=== PATIENT | female | born 1990 | race Caucasian/White ===

== ENCOUNTER 2017-07-23 16:53 | Emergency (ER) | payer OTHER ==
[2017-07-23 16:57] VITALS: BP 132/95; PULSE 89; TEMP 98.9; BMI 29.0
[2017-07-23] MEDS ORDERED: DIPHTH,PERTUSS(ACELL),TET 0.5 ML DISP.SYRIN IM ONE (16:59)
--- NOTE | 2017-07-23 17:24 | PDOC ---
History of Present Illness - General History Source: Patient Exam Limitations: No Limitations - History of Present Illness Initial Comments: 07/23/17 17:29 27 year old female, with PMH of anxiety, who presents to the emergency department today complaining of intermittent left sided chest pain and cough that began 9 days ago. She describes the pain as nonradiating, throbbing, and 6/ 10 in severity. Each episode lasts for 10-15 seconds long. She notes that she has had a cough for 2 weeks which that was initially nonproductive, however, 3 days ago she began coughing up green sputum. She reports that she feels more tired than usual. Denies fever, chills, nausea, vomiting, abdominal pain, diarrhea. Denies lightheadedness, headache. Denies SOB. Allergies: NKA <Kisha Hugo - Last Filed: 07/23/17 17:36> <Ben Schmitt - Last Filed: 07/23/17 17:45> - General Chief Complaint: Cold Symptoms Stated Complaint: COUGH Time Seen by Provider: 07/23/17 16:58 Past History <Kisha Hugo - Last Filed: 07/23/17 17:36> - Past Medical History COPD: No Other medical history: DENIES - Suicide/Smoking/Psychosocial Hx Smoking History: Never smoked Hx Alcohol Use: Yes Drug/Substance Use Hx: No Substance Use Type: Alcohol <Ben Schmitt - Last Filed: 07/23/17 17:45> - Past Medical History Allergies/Adverse Reactions: Allergies Allergy/AdvReac Type Severity Reaction Status Date / Time No Known Allergies Allergy Verified 07/23/17 16:54 Home Medications: Ambulatory Orders Ibuprofen 400 mg PO TID PRN #20 tablet 07/23/17 Norethindrone-E.estradiol-Iron [Rika Fe 1-20 Tablet] 1 each PO DAILY 07/23/17 Promethazine/Phenyleph/Codeine [Phenergan VC+Codeine Syrup] 5 - 10 ml PO TID PRN #100 ml MDD 6 07/23/17 Review of Systems - Review of Systems Able to Perform ROS?: Yes Comments:: 07/23/17 17:29 CONSTITUTIONAL: Absent: fever, chills, diaphoresis, generalized weakness, malaise, loss of appetite HEENT: Absent: rhinorrhea, nasal congestion, throat pain, throat swelling, difficulty swallowing, mouth swelling, ear pain, eye pain, visual Changes CARDIOVASCULAR: Present:chest pain Absent: syncope, palpitations, irregular heart rate, lightheadedness, peripheral edema RESPIRATORY: Present: cough Absent: shortness of breath, dyspnea with exertion, orthopnea, wheezing, stridor, hemoptysis GASTROINTESTINAL: Absent: abdominal pain, abdominal distension, nausea, vomiting, diarrhea, constipation, melena, hematochezia MUSCULOSKELETAL: Absent: myalgia, arthralgia, joint swelling SKIN: Absent: rash, itching, pallor NEUROLOGIC: Absent: headache, focal weakness or paresthesias, dizziness, unsteady gait, seizure, mental status changes, bladder or bowel incontinence PSYCHIATRIC: Absent: anxiety, depression, suicidal or homicidal ideation, hallucinations. <Kisha Hugo - Last Filed: 07/23/17 17:36> *Physical Exam - Vital Signs Last Vital Signs Temp Pulse Resp BP Pulse Ox 98.9 F 89 16 132/95 100 07/23/17 16:53 07/23/17 16:53 07/23/17 16:53 07/23/17 16:53 07/23/17 16:53 - Physical Exam Comments: 07/23/17 17:36 GENERAL: Well developed, well nourished. Awake and alert. In no acute distress. HEENT: Normocephalic, atraumatic. PERRLA, EOMI. No conjunctival pallor. Sclera are non- icteric. Moist mucous membranes. Oropharynx is clear. NECK: Supple. Full ROM. No JVD. Carotid pulses 2+ and symmetric, without bruits. No thyromegaly. No lymphadenopathy. CARDIOVASCULAR: Regular rate and rhythm. No murmurs, rubs, or gallops. Distal pulses are 2+ and symmetric. PULMONARY: No evidence of respiratory distress. Lungs clear to auscultation bilaterally. No wheezing, rales or rhonchi. ABDOMINAL: Soft. Non-tender. Non-distended. No rebound or guarding. No organomegaly. Normoactive bowel sounds. MUSCULOSKELETAL +Tenderness to deep palpation over the left anterior chest wall. No deformity and crepitus. Normal range of motion at all joints. No bony deformities or tenderness. No CVA tenderness. EXTREMITIES: No cyanosis. No clubbing. No edema. No calf tenderness. SKIN: Warm and dry. Normal capillary refill. No rashes. No jaundice. NEUROLOGICAL: Alert, awake, appropriate. Cranial nerves 2-12 intact. PSYCHIATRIC: Cooperative. Good eye contact. Appropriate mood and affect. <Kisha Hugo - Last Filed: 07/23/17 17:36> - Vital Signs Last Vital Signs Temp Pulse Resp BP Pulse Ox 98.9 F 89 16 132/95 100 07/23/17 16:53 07/23/17 16:53 07/23/17 16:53 07/23/17 16:53 07/23/17 16:53 <Ben Schmitt - Last Filed: 07/23/17 17:45> Medical Decision Making - Medical Decision Making 07/23/17 17:35 Probable acute costochondritis. No evidence of cardiac or respiratory disease. May be precipitated by recent URI. Symptomatic treatment and follow-up if symptoms worsen. Patient in no pain or other distress upon discharge to follow up as needed. <Ben Schmitt - Last Filed: 07/23/17 17:45> *DC/Admit/Observation/Transfer - Attestations Scribe Attestion: 07/23/17 17:30 Documentation prepared by DANIELLA Munguia, acting as medical records library professor for Ben Schmitt MD. <Kisha Hugo - Last Filed: 07/23/17 17:36> - Discharge Dispostion Admit: No <Ben Schmitt - Last Filed: 07/23/17 17:45> Diagnosis at time of Disposition: Viral URI with cough, Costochondritis - Discharge Dispostion Disposition: HOME Condition at time of disposition: Stable - Prescriptions Prescriptions: Ibuprofen 400 mg PO TID PRN #20 tablet PRN Reason: Pain Promethazine/Phenyleph/Codeine [Phenergan VC+Codeine Syrup] 5 - 10 ml PO TID PRN #100 ml MDD 6 PRN Reason: cough, congestion - Referrals Referrals: Uriah Colorado MD [Staff Physician] - - Patient Instructions Printed Discharge Instructions: DI for Viral Upper Respiratory Infection -- Adult, DI for Costochondritis - Post Discharge Activity Forms/Work/School Notes: Back to Work
== END 2017-07-23 18:09 | disposition home or self-care (01) ==
LOC: FER 16:53
DX: M94.0 Chondrocostal junction syndrome [Tietze] (principal); J06.9 Acute upper respiratory infection, unspecified; F41.9 Anxiety disorder, unspecified
CPT/HCPCS: 99281-25

== ENCOUNTER 2017-10-01 11:37 | Emergency (ER) | payer OTHER ==
--- NOTE | 2017-10-01 11:51 | PDOC ---
History of Present Illness - General Chief Complaint: Headache Stated Complaint: HEADACHE ON AND OFF 2 MONTHS LOWER ABDOMEN CRAMPI Time Seen by Provider: 10/01/17 11:48 History Source: Patient - History of Present Illness Timing/Duration: unsure, intermittent Severity: moderate Modifying Factors: improves with: cold therapy, medication Past History - Travel Traveled outside of the country in the last 30 days: No Close contact w/someone who was outside of country & ill: No - Past Medical History Allergies/Adverse Reactions: Allergies Allergy/AdvReac Type Severity Reaction Status Date / Time No Known Allergies Allergy Verified 10/01/17 11:39 Home Medications: Ambulatory Orders Butalb/Acetaminophen/Caffeine [Fioricet 50-300-40 mg Capsule] 1 tab PO PRN 10/01 Methocarbamol [Robaxin -] 500 mg PO TID #21 tablet 10/01/17 Norethindrone-E.estradiol-Iron [Rika Fe 1.5-30 Tablet] 1 tab PO DAILY 10/01/17 Ondansetron [Ondansetron Odt] 8 mg PO BID #10 tab.rapdis 10/01/17 COPD: No Other medical history: Migraine headaches - Suicide/Smoking/Psychosocial Hx Smoking History: Never smoked Hx Alcohol Use: Yes Drug/Substance Use Hx: No Substance Use Type: Alcohol Review of Systems - Review of Systems Able to Perform ROS?: Yes Is the patient limited Indonesian proficient: Yes Constitutional: Yes: Symptoms Reported, Malaise HEENTM: No: Symptoms Reported, See HPI, Eye Pain, Blurred Vision, Tearing, Recent change in vision, Double Vision, Cataracts, Ear Pain, Ocular Prothesis, Ear Discharge, Nose Pain, Nose Congestion, Tinnitus, Nose Bleeding, Hearing Loss , Throat Pain, Throat Swelling, Mouth Pain, Dental Problems, Difficulty Swallowing, Mouth Swelling, Other Respiratory: No: Symptoms reported, See HPI, Cough, Orthopnea, Shortness of Breath, SOB with Exertion, SOB at Rest, Stridor, Wheezing, Productive cough, Hemoptysis, Other ABD/GI: Yes: See HPI Neurological: Yes: Symptoms reported, Headache All Other Systems: Reviewed and Negative *Physical Exam - Physical Exam General Appearance: Yes: Nourished, Appropriately Dressed, Obese. No: Apparent Distress HEENT: positive: JAROD, Normal ENT Inspection Neck: positive: Trachea midline, Supple Respiratory/Chest: positive: Lungs Clear, Normal Breath Sounds Cardiovascular: positive: Regular Rate Gastrointestinal/Abdominal: positive: Other (Mild suprapubic abdominal pain) Integumentary: positive: Normal Color Neurologic: positive: floorleader II-XII NML intact, Fully Oriented, Alert, Normal Mood/ Affect, Normal Response Medical Decision Making - Medical Decision Making Patient being observed for 2 hours, CT head tested NAD. Give copy of report, advised to follow up with neurologist as scheduled 10/02/17 12:11 *DC/Admit/Observation/Transfer Diagnosis at time of Disposition: Tension headache - Discharge Dispostion Disposition: HOME Condition at time of disposition: Stable Admit: No - Prescriptions Prescriptions: Methocarbamol [Robaxin -] 500 mg PO TID #21 tablet Ondansetron [Ondansetron Odt] 8 mg PO BID #10 tab.rapdis - Referrals - Patient Instructions Printed Discharge Instructions: DI for Migraine Additional Instructions: Follow up with your neurologist - Post Discharge Activity
[2017-10-01 11:57] VITALS: TEMP 98; BMI 29.7
[2017-10-01 13:31] VITALS: BP 126/84; PULSE 101
== END 2017-10-01 13:54 | disposition home or self-care (01) ==
LOC: FER 11:37
DX: G44.209 Tension-type headache, unspecified, not intractable (principal)
CPT/HCPCS: 70450-TC; 84703; 99282-25

== ENCOUNTER 2019-09-22 09:20 | Emergency (ER) | payer OTHER ==
[2019-09-22 09:45] VITALS: TEMP 97.9; BMI 29.8
[2019-09-22] MEDS ORDERED: ONDANSETRON 4 MG/2 ML VIAL IVPB ONE (09:46)
[2019-09-22] MEDS ORDERED: SODIUM CHLORIDE 1,000 ML IV STA (09:46)
--- NOTE | 2019-09-22 09:47 | PDOC ---
History of Present Illness - General Chief Complaint: Nausea Stated Complaint: NAUSEA AND DIARRHEA FOR 5 MONTHS Time Seen by Provider: 09/22/19 09:45 - History of Present Illness Initial Comments: 09/22/19 11:59 Chief complaint: Intermittent diarrhea HPI: Intermittent watery diarrhea since the of her first child 5 months ago. On some days she has 3-4 loose stools, and other days no diarrhea. She recently returned from a vacation in the [place], during which time her diarrhea seemed to increase, but now is back at usual frequency. No diarrhea today Review of systems: No fever/chills, URI symptoms, sore throat, cough, chest pain , shortness of breath, abdominal pain, nausea, vomiting, urinary tract symptoms , vaginal bleeding or discharge. Remainder of systems reviewed and negative Past medical history: Normal childbirth 5 months ago, intermittent watery diarrhea and occasional GERD symptoms. No surgery. Otherwise negative Social/family history reviewed and noncontributory Physical exam: Alert and oriented well-developed well-nourished no acute distress cheerful and cooperative. No abdominal pain or diarrhea at present Afebrile, vital signs normal No pallor or icterus. PERRLA, fundi benign, ENT clear Neck supple without bruit mass or nodes Chest clear CV regular without murmur rub or gallop Abdomen nondistended, bowel sounds normal. Soft without mass tenderness organomegaly. No CVAT Skin clear, no rash, adequate turgor and wet mucous membranes Extremities no CCE Neurological intact Impression: No acute illness, but chronic abdominal symptoms suggestive of IBS with diarrhea. Plan: Dietary management with regular meals, avoiding fatty foods. Referral to [facility] for further evaluation and treatment. Fully ambulatory in no pain or other distress at discharge to follow-up as recommended Past History - Past Medical History Allergies/Adverse Reactions: Allergies Allergy/AdvReac Type Severity Reaction Status Date / Time No Known Allergies Allergy Verified 10/01/17 11:39 Home Medications: Ambulatory Orders Metoprolol Succinate [Toprol Xl] 25 mg PO DAILY 09/22/19 COPD: No HTN: Yes Kidney Stones: Yes - Psycho Social/Smoking Cessation Hx Smoking History: Never smoked Information on smoking cessation initiated: No Hx Alcohol Use: Yes (SOCIAL) Drug/Substance Use Hx: No Substance Use Type: Alcohol *Physical Exam - Vital Signs Last Vital Signs Temp Pulse Resp BP Pulse Ox 97.9 F 96 H 16 132/92 100 09/22/19 09:37 09/22/19 09:37 09/22/19 09:37 09/22/19 09:37 09/22/19 09:37 Discharge - Discharge Information Problems reviewed: Yes Clinical Impression/Diagnosis: Irritable bowel Qualifiers: Irritable bowel syndrome type: with diarrhea Qualified Code(s): K58.0 - Irritable bowel syndrome with diarrhea Condition: Stable Disposition: HOME - Admission No - Follow up/Referral Referrals: Mars Frazier MD [Staff Physician] - - Patient Discharge Instructions Patient Printed Discharge Instructions: DI for Diarrhea and Traveler's Diarrhea -- Adult, DI for Irritable Bowel Syndrome Additional Instructions: Avoid heavy foods and dairy products when diarrhea flares up. Imodium for persistent diarrhea, more than 6-8 stools per day See [facility] for further evaluation. Return to ER if there is nausea or vomiting that is persistent, there are more than 4-6 loose stools a day, especially if there is blood, or there is severe abdominal pain. - Post Discharge Activity
[2019-09-22 10:06] VITALS: BP 120/86; PULSE 52
[2019-09-22 10:37] LABS: EPITHELIAL CELLS FEW /hpf
== END 2019-09-22 10:39 | disposition home or self-care (01) ==
LOC: FER 09:20
DX: K58.0 Irritable bowel syndrome with diarrhea (principal); I10 Essential (primary) hypertension; N20.0 Calculus of kidney
CPT/HCPCS: 81003; 81015; 84703; 99282-25